=== PATIENT | male | born 1945 | race Caucasian/White ===

== ENCOUNTER 2022-06-22 08:18 | Day surgery (SDC) | payer MEDICARE, BC ==
[~2022-06-22] VITALS: Ht 177.8 cm; Wt 110.0 kg
[2022-06-22] VITALS (11 sets, daily range): BP systolic 112–1115; BP diastolic 55–69; PULSE 58–91; TEMP 97.6–98.2
[2022-06-22] MEDS ORDERED: ELIQUIS 5MG PO (09:20)
[2022-06-22] MEDS ORDERED: FLOMAX 0.40.4 MG/CAP PO (09:21)
[2022-06-22] MEDS ORDERED: REVATIO20 MG PO (09:22)
[2022-06-22] MEDS ORDERED: PRILOSEC 20MG20 MG PO (09:23)
[2022-06-22] MEDS ORDERED: VITAMIN D 50,1.25 MG PO (09:24)
[2022-06-22] MEDS ORDERED: TYLENOL 325MG325 MG PO (09:26)
--- NOTE | 2022-06-22 20:28 | NUR ---
Patient assessed at this time. at bedside. Patient requested PRN Acetaminophen, as he usually takes it every night. Given as requested. Denies discomfort with CBI, which is currently running slow, with clear, amanda urine in tube. IV fluids running per orders. Tolerating PO intake without nausea or upset stomach. Voices no questions, needs, or concerns at this time. Catheter care provided. In bed with call light within reach. Encouraged to call with any questions, needs, or concerns and voiced understanding.
--- NOTE | 2022-06-22 23:08 | NUR ---
Patient pulled out IV to right hand but accident. New one started to right forearm.
[2022-06-23 00:35] VITALS: BP 103/61; PULSE 84; TEMP 99.1
--- NOTE | 2022-06-23 02:29 | NUR ---
Patient given PRN Percocet as requested for pain to back.
[2022-06-23 05:00] VITALS: BP 115/64; PULSE 85; TEMP 98.4
--- NOTE | 2022-06-23 05:44 | NUR ---
CBI continues to run slow, no clots. Output yellow and clear. In bed with call light within reach. Voices no questions, needs, or concerns at this time.
[2022-06-23 08:05] VITALS: BP 120/63; PULSE 94; TEMP 98.9
[2022-06-23] MEDS ORDERED: AZO URINARY PAI95 MG PO (09:13)
[2022-06-23] MEDS ORDERED: CEPHALEXIN500 M1 PO ×2 (09:14→17:18)
--- NOTE | 2022-06-23 10:13 | NUR ---
PATIENT ALERT AND ORIENTED X4. VSS. PATIENT HERE FOR TURP. PATIENT REPORTS PAIN IN BACK RATING 9/10, REQUESTS PAIN MEDICATION. CBI RUNNING SLOW WITH ORANGE TINTED URINE. ORDER TO PRIME AND PULL. ASSESSMENT COMPLETE. AM MEDS ADMINISTERED. PATIENT RESTING IN BED WITH CALL LIGHT NEAR.
--- NOTE | 2022-06-23 10:18 | NUR ---
PRIMED AND PULLED CATHETER. 6 CUP REGIMEN BEGAN.
[2022-06-23 12:00] VITALS: BP 114/58; PULSE 88; TEMP 98.6
--- NOTE | 2022-06-23 12:14 | NUR ---
Director Process stopped by but nothing needed at this time. Patient appeared to be having some complications.
[2022-06-23 15:54] VITALS: BP 142/77; PULSE 101; TEMP 98.4
--- NOTE | 2022-06-23 16:40 | NUR ---
Guillotine Operator met with patient and his spouse Lynn Mansfield ([phone]). Patient is post-op prostate resection and is struggling with continuous urination. He appears uncomfortable, but is willing to speak. He states he lives with his spouse in a single-story home in [place], [place]. There are stairs, but he is able to navigate without any difficulty. The home has grab bars, and a toilet riser in the bathroom, and he utilizes a cane at times to help him balance while ambulating. He reports no other use of DME, including no oxygen. His primary care physician is Dr. Jain in [place], and he obtains his medications at [facility] without any difficulties. He will go home at discharge and both he and his spouse report no concern for discharge needs. Guillotine Operator discusses DPOA-HC/Advanced Directives with patient and he does not wish to complete, reporting he is comfortable with his spouse Lynn Mansfield as his NOK. *Discharge to home with spouse*
--- NOTE | 2022-06-23 17:12 | NUR ---
DISCHARGE INSTRUCTIONS PROVIDED. PATIENT EDUCATION GIVEN. PATIENT'S REMOVED IV BEFORE THIS NURSE COULD REVIEW DISCHARGE INSTRUCTIONS. FOLLOW UP APPOINTMENT DISCUSSED. MEDICATIONS REVIEWED. PHARMACY CHANGED PER PATIENT'S REQUEST. INFORMATION SENT TO DR. BAUGH. PATIENT DENIES ANY QUESTIONS OR CONCERNS. PATIENT ESCORTED OUT VIA WHEELCHAIR.
[2022-06-23] MEDS ORDERED: PYRIDIUM 100MG100 MG PO (17:18)
== END 2022-06-23 17:15 | disposition home or self-care (01) ==
LOC: SDCO 08:18 → SURG 12:00 → SDCO 06-23 17:15
DX: N40.1 Benign prostatic hyperplasia with lower urinary tract symptoms (principal); R33.8 Other retention of urine; R39.198 Other difficulties with micturition; K21.9 Gastro-esophageal reflux disease without esophagitis; D68.51 Activated protein C resistance; Z79.01 Long term (current) use of anticoagulants
CPT/HCPCS: OP; J0690; J2250; J2405; J2704; J2795; J3010